=== PATIENT | male | born 1970 | race Caucasian/White ===

== ENCOUNTER 2020-08-05 07:45 | Observation (INO) | payer OTHER, SELFPAY ==
[2020-08-05] VITALS (16 sets, daily range): BP systolic 112–140; BP diastolic 72–84; PULSE 54–93; RESP 11–19; TEMP 36.4–36.6; O2SAT 97–100; BMI 25.8; BMI 25.1
--- NOTE | 2020-08-05 | DI.NM.S_ITS ---
PROCEDURE: NM MARYA PERF SPECT SINGLE STUDY Exercise myocardial perfusion SPECT with gated imaging and ejection fraction RADIOPHARMACEUTICAL: 25.6 mCi Tc-99m sestamibi IV at peak exercise. INDICATIONS: chest pain TECHNIQUE: Radiopharmaceutical was injected at peak stress test. SPECT images were obtained, with perfusion images in short axis, horizontal long axis, and vertical long axis views. Gated images were reviewed using [employer] software. COMPARISON: None. CARDIAC STRESS: A standard See treadmill exercise tolerance test was performed by the patient under the supervision of an attending staff. The patient exercised for 10 minutes and 1 seconds; functional aerobic impairment (ALDA) is +8%. Hemodynamic data: There is normal blood pressure and heart response to exercise. Patient achieved 91% of maximum predicted heart rate. Symptoms: Patient denied anginal chest pain during exercise. EKG: No diagnostic changes of ischemia; no ectopy. FINDINGS: Raw data: There is good labeling of myocardium by radiotracer. No significant motion artifacts. Gyhm-bg-ymykp ratio is 0.38 (normal is less than 0.38 for sestamibi tracer, and less than 0.50 for thallium tracer). Left ventricular function: Gated images demonstrate normal left ventricle wall thickening. No segmental wall motion abnormalities. Left ventricle end diastolic volume is 63 mL. Left ventricle stress ejection fraction is 75%; normal values are above 45%. Myocardial perfusion: There is normal distribution of activity in the left and right ventricular myocardium, without focal perfusion defects. IMPRESSION: Low risk, normal treadmill stress only nuclear study. 1) No perfusion evidence of ischemia or infarction. 2) Normal left ventricular size, wall motion, and systolic function (EF post stress 75%). 3) No ECG evidence of ischemia. 4) No angina during the study. 5) Slightly reduced exercise tolerance (12.8 METS, ALDA +8%). Target heart rate achieved. Appropriate BP response to exercise. 6) No prior nuclear stress test available for comparison. Dictated by: Kali Laguerre MD on 08/05/2020 at 17:11 Approved by: Kali Laguerre MD on 08/05/2020 at 17:13
--- NOTE | 2020-08-05 07:49 | DI.RAD.S_ITS ---
PROCEDURE: XR CHEST 1V INDICATIONS: chest pain TECHNIQUE: One view of the chest was acquired. COMPARISON: None. FINDINGS: Surgical changes and devices: None. Lungs and pleura: Lungs are clear. No pleural effusions or pneumothorax. Mediastinum: Mediastinal contours appear normal. Heart size is normal. Bones and chest wall: No suspicious bony lesions. Overlying soft tissues appear unremarkable. IMPRESSION: No acute disease. Dictated by: Shelton Birmingham M.D. on 08/05/2020 at 9:05 Approved by: Shelton Birmingham M.D. on 08/05/2020 at 9:17
--- NOTE | 2020-08-05 07:49 | ED.CHESTPAIN ---
HPI - Chest Pain General Chief Complaint: Chest Pain Stated Complaint: Chest pain Time Seen by Provider: 08/05/20 07:48 Source: patient and EMS Limitations: no limitations History of Present Illness HPI narrative: Patient is a 50-year-old male with history of hypertension hyperlipidemia presenting with chest pain. He states he was driving to work when he felt palpitations and pressure in the center of his chest. He said it was off and on until EMS arrived and then it was relieved by nitro. He said is nonradiating. He denies any provocation or palliation. He is currently chest pain-free after aspirin and 2 nitroglycerins. He has never experienced anything like this in the past. MD complaint: chest pain Onset (ago): hour(s) Duration: intermittent Onset: during rest Pain location: substernal Severity: moderate Quality: heaviness Relieving factors: nitroglycerin Treatments prior to arrival chest pain: aspirin and nitroglycerin Related Data Allergies Allergy/AdvReac Type Severity Reaction Status Date / Time No Known Drug Allergies Allergy Verified 08/05/20 08:42 Review of Systems Review of Systems Narrative: GENERAL: Denies chills, fatigue, malaise, fever, sweats, travel HEENT: Denies sinus pain, ear pain, sore throat, difficulty swallowing, neck pain RESPIRATORY: Denies dyspnea, cough, wheezing, hemoptysis, sputum. CARDIOVASCULAR: See HPI GASTROINTESTINAL: Denies nausea, vomiting, abdominal pain, diarrhea, constipation, melena. : Denies dysuria, frequency, incontinence, hematuria, urinary retention, flank pain. MUSCULOSKELETAL: Denies weakness, joint pain, or bony pain SKIN: No rash, no erythema, no pruritus NEUROLOGIC: Denies weakness, dizziness, headache, numbness, change in speech, confusion PSYCHIATRIC: No concerning psychosocial issues. 12 point review of systems is negative except for those stated above and HPI Patient History Medical History Hyperlipidemia Hypertension Social History Smoking Status: Former smoker alcohol intake frequency: 0-2 drinks per day Exam Initial Vital Signs Initial Vital Signs: Vital Signs Temperature 97.6 F 08/05/20 07:35 Pulse Rate 63 08/05/20 07:35 Respiratory Rate 16 08/05/20 07:35 Blood Pressure 131/80 08/05/20 07:35 Pulse Oximetry 99 08/05/20 07:35 GENERAL: Well-appearing, well-nourished and in no acute distress. HEENT: Head atraumatic,EOMI, pupils reactive, face symmetric, moist mucous membranes CARDIOVASCULAR: Regular rate and rhythm without murmurs, rubs or gallops. RESPIRATORY: Breath sounds equal bilaterally, no wheezes rales or rhonchi. ABDOMEN: Soft, nontender. Normoactive bowel sounds all 4 quadrants. No guarding or rebound. : No CVA tenderness EXTREMITIES: Normal range of motion, no clubbing or edema. Neurovascularly intact NEUROLOGICAL: Alert and oriented x4.Normal gait and speech. SKIN: Warm, dry, no laceration, no petechiae, no rashes or lesions. Scores HEART Score Heart Score history: Moderately Suspicious Heart Score EKG: Non-Specific repolarization disturbance Heart Score Age: 45-64 years old Heart Score risk factors: 1-2 risk factors Heart Score troponin: < or = to normal limit Heart Score Total: 4 Course Orders Ordered: ED Orders 08/05/20 07:45 Complete Blood Count AUTO DIFF Stat Comprehensive Metabolic Panel Stat Lipase Stat NT-proBNP (BNP-Adult 18+) Stat Partial Thromboplastin Time Stat Prothrombin Time INR Stat Troponin & CK Cardiac Panel Stat 08/05/20 07:49 XR chest 1V Stat 08/05/20 07:50 EKG-12 Lead Stat 08/05/20 08:28 EKG-12 Lead Routine 08/05/20 09:34 Troponin I Stat 08/05/20 10:19 COVID19 Stat Vital Signs Vital signs: Vital Signs - 8 hr 08/05/20 07:35 08/05/20 07:57 08/05/20 08:00 Temperature 97.6 F Pulse Rate 63 65 64 Respiratory Rate 16 14 15 Blood Pressure 131/80 Pulse Oximetry 99 99 99 08/05/20 08:30 08/05/20 08:46 08/05/20 09:00 Temperature Pulse Rate 62 60 54 L Respiratory Rate 17 14 13 Blood Pressure 112/77 119/72 Pulse Oximetry 98 98 97 08/05/20 09:30 08/05/20 10:00 08/05/20 10:08 Temperature Pulse Rate 59 L 60 63 Respiratory Rate 19 13 16 Blood Pressure 123/78 Pulse Oximetry 100 100 100 08/05/20 10:30 08/05/20 11:00 08/05/20 11:30 Temperature Pulse Rate 64 69 71 Respiratory Rate 11 L 17 14 Blood Pressure 124/74 132/84 125/81 Pulse Oximetry 100 100 97 MDM - Chest Pain Lab Data Attestation: I reviewed the patient's lab results. Result diagrams: 08/05/20 07:45 08/05/20 07:45 Labs: Lab Results 08/05/20 08/05/20 08/05/20 Range/Units 07:45 07:45 07:45 WBC 9.4 (4.5-11.0) X10^3/uL RBC 5.25 (4.5-5.9) X10^6/uL Hgb 16.2 (13.5-17.5) g/dL Hct 48.2 (41-53) % MCV 91.9 (80-100) fL MCH 30.9 (26-34) PG MCHC 33.7 (30-36) % RDW 12.4 (11.6-14.8) % Plt Count 240 (150-400) X10^3/uL Neut % (Auto) 72.7 (50-75) % Lymph % (Auto) 19.7 L (25-40) % [place] % (Auto) 6.4 (3-14) % Eos % (Auto) 0.9 L (2-4) % Baso % (Auto) 0.3 (0-2) % Neut # (Auto) 6800 (0696-9744) /uL Lymph # (Auto) 1800 (3492-1245) /uL [place] # (Auto) 600 (0-900) /uL Eos # (Auto) 100 (0-450) /uL Baso # (Auto) 0 (0-100) /uL PT 11.3 (10.1-12.7) SECONDS INR 1.0 (0.9-1.3) APTT 31 (26.4-36.2) SECONDS Sodium 138 (137-145) mmol/L Potassium 4.2 (3.4-5.1) mmol/L Chloride 102 (98-107) mmol/L Carbon Dioxide 26 (22-32) mmol/L BUN 22 H (9-20) mg/dL Creatinine 0.81 (0.66-1.25) mg/dL Estimated GFR > 60.0 (>60) mL/min BUN/Creatinine Ratio 27.2 H (6-22) Glucose 128 H (70-100) mg/dL Calcium 9.8 (8.4-10.2) mg/dL Total Bilirubin 0.9 (0.2-1.3) mg/dL AST 40 (17-59) IU/L ALT 47 (<50) IU/L Alkaline Phosphatase 83 (38-126) U/L Total Creatine Kinase 78 (55-170) U/L CK-MB (CK-2) TNP CK-MB (CK-2) Rel Index TNP Troponin I < 0.012 (0.01-0.034) ng/mL NT-Pro-B Natriuret Pep 45 (<125) pg/mL Total Protein 8.6 H (6.3-8.2) g/dL Albumin 4.9 (3.5-5.0) g/dL Globulin 3.7 (1.7-4.1) g/dL Albumin/Globulin Ratio 1.3 (1.0-2.8) Lipase 106 (23-300) U/L SARS-CoV-2 (PCR) (Negative) 08/05/20 08/05/20 Range/Units 09:34 10:19 WBC (4.5-11.0) X10^3/uL RBC (4.5-5.9) X10^6/uL Hgb (13.5-17.5) g/dL Hct (41-53) % MCV (80-100) fL MCH (26-34) PG MCHC (30-36) % RDW (11.6-14.8) % Plt Count (150-400) X10^3/uL Neut % (Auto) (50-75) % Lymph % (Auto) (25-40) % [place] % (Auto) (3-14) % Eos % (Auto) (2-4) % Baso % (Auto) (0-2) % Neut # (Auto) (0473-0327) /uL Lymph # (Auto) (8459-7239) /uL [place] # (Auto) (0-900) /uL Eos # (Auto) (0-450) /uL Baso # (Auto) (0-100) /uL PT (10.1-12.7) SECONDS INR (0.9-1.3) APTT (26.4-36.2) SECONDS Sodium (137-145) mmol/L Potassium (3.4-5.1) mmol/L Chloride (98-107) mmol/L Carbon Dioxide (22-32) mmol/L BUN (9-20) mg/dL Creatinine (0.66-1.25) mg/dL Estimated GFR (>60) mL/min BUN/Creatinine Ratio (6-22) Glucose (70-100) mg/dL Calcium (8.4-10.2) mg/dL Total Bilirubin (0.2-1.3) mg/dL AST (17-59) IU/L ALT (<50) IU/L Alkaline Phosphatase (38-126) U/L Total Creatine Kinase (55-170) U/L CK-MB (CK-2) CK-MB (CK-2) Rel Index Troponin I < 0.012 (0.01-0.034) ng/mL NT-Pro-B Natriuret Pep (<125) pg/mL Total Protein (6.3-8.2) g/dL Albumin (3.5-5.0) g/dL Globulin (1.7-4.1) g/dL Albumin/Globulin Ratio (1.0-2.8) Lipase (23-300) U/L SARS-CoV-2 (PCR) Negative (Negative) ECG Data Attestation: I personally reviewed and interpreted this ECG as follows: Prior ECG tracings: not available for review Interpretation: EKG 1. Normal sinus rhythm rate 68 p.r. interval 99 QRS 93 QTC 383 T-wave inversions noted in lead 3, AVF, V2 V3 and V4 no ST elevations EKG 2. Sinus rhythm rate 62 persistent T-wave inversions seem to be about the same previous MDM Narrative Medical decision making narrative: Patient remains chest pain-free while in the ED. he has 2-troponins however he does have some concerning T-wave inversions on EKGs which remain unchanged. I discussed case with Dr. Goldman who agrees for observation Discharge Plan Departure Patient Disposition: Admitted as Observation Clinical Impression: Chest pain Admit Date/Time: 08/05/20 11:43 Admit Provider: Carson Goldman
[2020-08-05 07:57] LABS: Add Manual Diff / Slide Review NO; Basophils Absolute Auto 0 /uL (0-100); Basophils Percent Auto 0.3 % (0-2); Eosinophils Absolute Auto 100 /uL (0-450); Eosinophils Percent Auto 0.9 % (2-4); Hematocrit 48.2 % (41-53); Hemoglobin 16.2 g/dL (13.5-17.5); Lymphocytes Absolute Auto 1800 /uL (1100-4500); Lymphocytes Percent Auto 19.7 % (25-40); Mean Corpuscular HGB Conc 33.7 % (30-36); Mean Corpuscular Hemoglobin 30.9 PG (26-34); Mean Corpuscular Volume 91.9 fL (80-100); Monocytes Absolute Auto 600 /uL (0-900); Monocytes Percent Auto 6.4 % (3-14); Neutrophils Absolute Auto 6800 /uL (1500-7000); Neutrophils Percent Auto 72.7 % (50-75); Platelet Count 240 X10^3/uL (150-400); Red Blood Cell Count 5.25 X10^6/uL (4.5-5.9); Red Cell Distribution Width 12.4 % (11.6-14.8); White Blood Cell Count 9.4 X10^3/uL (4.5-11.0)
[2020-08-05 08:00] LABS: Prothrombin Time 11.3 SECONDS (10.1-12.7)
[2020-08-05 08:03] LABS: PTT Partial Thromboplastin Tim 31 SECONDS (26.4-36.2)
[2020-08-05 08:05] LABS: Alanine Aminotransferase 47 IU/L (<50); Albumin 4.9 g/dL (3.5-5.0); Albumin Globulin Ratio 1.3 (1.0-2.8); Alkaline Phosphatase 83 U/L (38-126); Aspartate Aminotransferase 40 IU/L (17-59); BUN Creatinine Ratio 27.2 (6-22); Bilirubin Total 0.9 mg/dL (0.2-1.3); Blood Urea Nitrogen 22 mg/dL (9-20); Calcium 9.8 mg/dL (8.4-10.2); Carbon Dioxide 26 mmol/L (22-32); Chloride 102 mmol/L (98-107); Creatine Kinase 78 U/L (55-170); Estimated Glomerular Filt Rate > 60.0 mL/min (>60); Globulin 3.7 g/dL (1.7-4.1); Glucose 128 mg/dL (70-100); HEMOLYSIS < 15 (0-50); Lipase 106 U/L (23-300); Potassium 4.2 mmol/L (3.4-5.1); Sodium 138 mmol/L (137-145); Total Protein 8.6 g/dL (6.3-8.2)
[2020-08-05 08:16] LABS: NT-proBNP (BNP-Adult 18+) 45 pg/mL (<125); Troponin I < 0.012 ng/mL (0.01-0.034)
[2020-08-05 10:36] LABS: Troponin I < 0.012 ng/mL (0.01-0.034)
[2020-08-05 11:09] LABS: COVID19 -Nasal RAPID Negative (Negative)
--- NOTE | 2020-08-05 14:09 | P.HP_ITS ---
History of Present Illness History of Present Illness Date Patient Seen: 08/05/20 Time Patient Seen: 14:09 Chief complaint: Chest pain Narrative: Ron Keating is a 50-year-old male with a past medical history of hypertension and hyperlipidemia who presented via EMS after he complained chest pain while driving to work this morning. Patient describes the pain as a pressure-like sensation in the center of his chest, it was nonradiating and he did feel palpitations as well as nausea and dizziness but he did not feel diaphoretic and there was no radiation into his left arm, neck, or jaw. The pain was intermittent, with no obvious provoking or palliative factors, other than it was relieved by 2 nitroglycerin tabs and aspirin given to him. He denies previous symptoms and has never had any chest pain in the past. He denies a family history of heart disease. He has had no recent fevers, chills, shortness of breath, abdominal pain, lower extremity swelling, dyspnea on exertion. In the emergency room, his vital signs were unremarkable. Initial laboratory evaluation showed an unremarkable CBC, unremarkable chemistries, a negative troponin, negative proBNP, and negative COVID-19 testing. Chest x-ray was unremarkable. EKG did not show any ST elevations or depressions but did show T- wave inversions in inferior leads 3 and AVF as well as precordial leads V2 through V4. Prior EKG was not available for comparison. HEART score was 4. Patient was admitted under observation status for further evaluation of chest pain and stress testing, planned for later this afternoon. Patient History Medical History Hyperlipidemia Hypertension Surgical History (Updated 08/05/20 @ 14:25 by Carson Goldman DO) History of hernia surgery Status post excision of lipoma Family & Social History Family History (Updated 08/05/20 @ 14:26 by Carson Goldman DO) Father CVA (cerebral vascular accident) Social History: household members spouse Prior Living Arrangements House Safety & Behavioral: Feels Safe in Current Yes Environment Been Physically Hurt or No Threatened By a Person Suicidal Ideation Description None Tobacco & Substance use: Smoking Status Former smoker alcohol intake current alcohol intake frequency 0-2 drinks per day Substance Use Type does not use Meds Home Medications and Allergies Home Medications Medication Instructions Recorded Confirmed Type atenolol 50 mg PO BEDTIME 08/05/20 08/05/20 History atorvastatin 80 mg PO BEDTIME 08/05/20 08/05/20 History Allergies Allergy/AdvReac Type Severity Reaction Status Date / Time No Known Drug Allergies Allergy Verified 08/05/20 08:42 Review of Systems Review of Systems Narrative: All other systems reviewed with the patient and are negative unless otherwise stated. Exam Vital Signs (past 8 hours): - 08/05/20 07:35 08/05/20 07:57 08/05/20 08:00 Temperature 97.6 F Pulse Rate 63 65 64 Respiratory Rate 16 14 15 Blood Pressure 131/80 Pulse Oximetry 99 99 99 08/05/20 08:30 08/05/20 08:46 08/05/20 09:00 Temperature Pulse Rate 62 60 54 L Respiratory Rate 17 14 13 Blood Pressure 112/77 119/72 Pulse Oximetry 98 98 97 08/05/20 09:30 08/05/20 10:00 08/05/20 10:08 Temperature Pulse Rate 59 L 60 63 Respiratory Rate 19 13 16 Blood Pressure 123/78 Pulse Oximetry 100 100 100 08/05/20 10:30 08/05/20 11:00 08/05/20 11:30 Temperature Pulse Rate 64 69 71 Respiratory Rate 11 L 17 14 Blood Pressure 124/74 132/84 125/81 Pulse Oximetry 100 100 97 08/05/20 12:00 08/05/20 12:51 Temperature 97.8 F Pulse Rate 78 78 Respiratory Rate 14 18 Blood Pressure 115/79 130/79 Pulse Oximetry 97 99 Oxygen Delivery Method Room Air Oxygen Flow Rate 0 Narrative Exam Narrative: GENERAL APPEARANCE: Well developed, well nourished, in no acute distress. SKIN: Inspection of the skin reveals no rashes, ulcerations or petechiae. HEENT: Normocephalic atraumatic, extraocular muscles are intact, oropharynx is clear and mucous membranes are moist, neck is supple without adenopathy NECK: Supple and symmetric. There was no thyroid enlargement, and no tenderness, or masses were felt. CHEST: Normal AP diameter and normal contour without any kyphoscoliosis. LUNGS: Auscultation of the lungs revealed no wheezes, rhonchi, or rales. CARDIOVASCULAR: There was a regular rate and rhythm without any murmurs, gallops, rubs. Peripheral pulses were 2+ and symmetric. ABDOMEN: Soft and nontender with normal bowel sounds. No ascites was noted. MUSCULOSKELETAL: There was no tenderness or effusions noted. Muscle strength and tone were normal. EXTREMITIES: No cyanosis, clubbing or edema. NEUROLOGIC: Alert and oriented x 3. Normal affect. Gait was normal. Strength is +5/5 in the Upper Extremities and Lower Extremities Bilaterally. Objective Labs Result Diagrams: 08/05/20 07:45 08/05/20 07:45 Labs: Laboratory Results - last 24 hr 08/05/20 08/05/20 08/05/20 07:45 07:45 07:45 WBC 9.4 RBC 5.25 Hgb 16.2 Hct 48.2 MCV 91.9 MCH 30.9 MCHC 33.7 RDW 12.4 Plt Count 240 Neut % (Auto) 72.7 Lymph % (Auto) 19.7 L [place] % (Auto) 6.4 Eos % (Auto) 0.9 L Baso % (Auto) 0.3 Neut # (Auto) 6800 Lymph # (Auto) 1800 [place] # (Auto) 600 Eos # (Auto) 100 Baso # (Auto) 0 PT 11.3 INR 1.0 APTT 31 Sodium 138 Potassium 4.2 Chloride 102 Carbon Dioxide 26 BUN 22 H Creatinine 0.81 Estimated GFR > 60.0 BUN/Creatinine Ratio 27.2 H Glucose 128 H Calcium 9.8 Total Bilirubin 0.9 AST 40 ALT 47 Alkaline Phosphatase 83 Total Creatine Kinase 78 CK-MB (CK-2) TNP CK-MB (CK-2) Rel Index TNP Troponin I < 0.012 NT-Pro-B Natriuret Pep 45 Total Protein 8.6 H Albumin 4.9 Globulin 3.7 Albumin/Globulin Ratio 1.3 Lipase 106 SARS-CoV-2 (PCR) 08/05/20 08/05/20 09:34 10:19 WBC RBC Hgb Hct MCV MCH MCHC RDW Plt Count Neut % (Auto) Lymph % (Auto) [place] % (Auto) Eos % (Auto) Baso % (Auto) Neut # (Auto) Lymph # (Auto) [place] # (Auto) Eos # (Auto) Baso # (Auto) PT INR APTT Sodium Potassium Chloride Carbon Dioxide BUN Creatinine Estimated GFR BUN/Creatinine Ratio Glucose Calcium Total Bilirubin AST ALT Alkaline Phosphatase Total Creatine Kinase CK-MB (CK-2) CK-MB (CK-2) Rel Index Troponin I < 0.012 NT-Pro-B Natriuret Pep Total Protein Albumin Globulin Albumin/Globulin Ratio Lipase SARS-CoV-2 (PCR) Negative Assessment & Plan Assessment & Plan narrative: Ron Keating is a 50-year-old male with a past medical history of hypertension and hyperlipidemia who presented via EMS after he complained chest pain while driving to work this morning, subsequently chest pain resolved after being given aspirin and nitroglycerin. He does have some T- wave inversions in inferior and precordial leads, heart score is 4. Will admit under observation for nuclear stress testing planned for later this afternoon. 1. Chest pain, acute, resolved on admission -story is fairly atypical for anginal equivalent, but given palpitations and relieved with nitroglycerin along with EKG changes noted above will perform nuclear stress testing. HEART score of 4 on admission (history, EKG, age, and risk factors). -troponin has been negative x2. Repeat later this evening. -will further risk stratify with A1c, TSH, and fasting lipid panel as the patient has not eaten this morning. -if stress testing is deemed low risk, he can likely be discharged home with PCP follow-up for TTE and possible holter monitor to evaluate for possibility of arrythmia. 2. HTN, chronic - BP controlled since arrival. Did take home atenolol yesterday evening, 50 mg. 3. HLD, chronic - has been some time since his last lipid panel, will try and add on to ER labs. - continue home lipitor 80 mg. Code: Full as discussed with the patient Dispo: Admitted under observation status, possible discharge home later today DVT: Patient is ambulatory, will order SCDs COVID-19 COVID-19 status: Negative Quality VTE Deep Vein Thrombosis/Pulmonary Embolism Present on Admission: No
--- NOTE | 2020-08-05 14:45 | PC.NURSE ---
Admit Note Pt to room 223 from ER at 1230. Ambulated from wheelchair to chair in room, steady on feet, independent. Denies any chest pain or pressure since arrival to ER. SpO2 99% RA. NPO for cardiac stress test which was scheduled for 1430 - pt taken down for stress test at that time. Oriented to room on arrival and to call light/bed/tv controls. Declines need to lock up any valuables in safe. Glasses in place, cell phone at bedside, and clothing in room closet. Call light within reach.
[2020-08-05 14:54] LABS: Hemoglobin A1C% w Est Avg Glu 5.6 % (4.0-6.0)
[2020-08-05 15:56] LABS: Cholesterol 208 mg/dL (140-199); HDL Cholesterol 57 mg/dL (40-60); LDL Cholesterol Calculated 111 mg/dL (<100); Triglycerides 200 mg/dL (35-150)
[2020-08-05 17:01] LABS: Troponin I < 0.012 ng/mL (0.01-0.034)
--- NOTE | 2020-08-05 17:25 | PM.DS.1 ---
History of Present Illness History of Present Illness Date Patient Seen: 08/05/20 Time Patient Seen: 17:25 Chief complaint: Chest pain Narrative: Ron Keating is a 50-year-old male with a past medical history of hypertension and hyperlipidemia who presented via EMS after he complained chest pain while driving to work this morning. Patient describes the pain as a pressure-like sensation in the center of his chest, it was nonradiating and he did feel palpitations as well as nausea and dizziness but he did not feel diaphoretic and there was no radiation into his left arm, neck, or jaw. The pain was intermittent, with no obvious provoking or palliative factors, other than it was relieved by 2 nitroglycerin tabs and aspirin given to him. He denies previous symptoms and has never had any chest pain in the past. He denies a family history of heart disease. He has had no recent fevers, chills, shortness of breath, abdominal pain, lower extremity swelling, dyspnea on exertion. In the emergency room, his vital signs were unremarkable. Initial laboratory evaluation showed an unremarkable CBC, unremarkable chemistries, a negative troponin, negative proBNP, and negative COVID-19 testing. Chest x-ray was unremarkable. EKG did not show any ST elevations or depressions but did show T-wave inversions in inferior leads 3 and AVF as well as precordial leads V2 through V4. Prior EKG was not available for comparison. HEART score was 4. Patient was admitted under observation status for further evaluation of chest pain and stress testing, planned for later this afternoon. Discharge Providers Provider Date of admission: 08/05/20 11:43 Discharge Date: 08/05/20 Primary care physician: Cale Reno MD Discharge provider: Carson Goldman DO Summary Hospital Course Discharge Diagnosis: Fredy Keating is a 50-year-old male with a past medical history of hypertension and hyperlipidemia who presented via EMS after he complained chest pain while driving to work this morning, subsequently chest pain resolved after being given aspirin and nitroglycerin. He did have some T-wave inversions in inferior and precordial leads, heart score was 4. Admitted under observation for nuclear stress testing which was deemed low risk. 1. Chest pain, acute, resolved on admission -story is fairly atypical for anginal equivalent, but given palpitations and relieved with nitroglycerin along with EKG changes noted above performed nuclear stress testing which was deemed low risk. HEART score of 4 on admission (history, EKG, age, and risk factors). -troponin was negative x3. -A1c 5.6%, TSH unremarkable, LDL 111 on statin therapy. -recommend outpatient evaluation with PMD for holter, no other indication for TTE at this time unless symptoms continue. 2. HTN, chronic - BP controlled since arrival. Did take home atenolol yesterday evening, 50 mg. Okay to continue on discharge. 3. HLD, chronic - continue home lipitor 80 mg. LDL as noted above. Exam Vital Signs (past 8 hours): - 08/05/20 09:30 08/05/20 10:00 08/05/20 10:08 Temperature Pulse Rate 59 L 60 63 Respiratory Rate 19 13 16 Blood Pressure 123/78 Pulse Oximetry 100 100 100 08/05/20 10:30 08/05/20 11:00 08/05/20 11:30 Temperature Pulse Rate 64 69 71 Respiratory Rate 11 L 17 14 Blood Pressure 124/74 132/84 125/81 Pulse Oximetry 100 100 97 08/05/20 12:00 08/05/20 12:51 08/05/20 14:22 Temperature 97.8 F Pulse Rate 78 78 Respiratory Rate 14 18 Blood Pressure 115/79 130/79 Pulse Oximetry 97 99 99 08/05/20 15:50 Temperature 98 F Pulse Rate 93 H Respiratory Rate 17 Blood Pressure 140/81 Pulse Oximetry 98 Oxygen Delivery Method Room Air Oxygen Flow Rate 0 Narrative Exam Narrative: GENERAL APPEARANCE: Well developed, well nourished, in no acute distress. SKIN: Inspection of the skin reveals no rashes, ulcerations or petechiae. HEENT: Normocephalic atraumatic, extraocular muscles are intact, oropharynx is clear and mucous membranes are moist, neck is supple without adenopathy NECK: Supple and symmetric. There was no thyroid enlargement, and no tenderness, or masses were felt. CHEST: Normal AP diameter and normal contour without any kyphoscoliosis. LUNGS: Auscultation of the lungs revealed no wheezes, rhonchi, or rales. CARDIOVASCULAR: There was a regular rate and rhythm without any murmurs, gallops, rubs. Peripheral pulses were 2+ and symmetric. ABDOMEN: Soft and nontender with normal bowel sounds. No ascites was noted. MUSCULOSKELETAL: There was no tenderness or effusions noted. Muscle strength and tone were normal. EXTREMITIES: No cyanosis, clubbing or edema. NEUROLOGIC: Alert and oriented x 3. Normal affect. Gait was normal. Strength is +5/5 in the Upper Extremities and Lower Extremities Bilaterally. Objective Labs Result Diagrams: 08/05/20 07:45 08/05/20 07:45 Labs: Laboratory Results - last 24 hr 08/05/20 08/05/20 08/05/20 07:45 07:45 07:45 WBC 9.4 RBC 5.25 Hgb 16.2 Hct 48.2 MCV 91.9 MCH 30.9 MCHC 33.7 RDW 12.4 Plt Count 240 Neut % (Auto) 72.7 Lymph % (Auto) 19.7 L [place] % (Auto) 6.4 Eos % (Auto) 0.9 L Baso % (Auto) 0.3 Neut # (Auto) 6800 Lymph # (Auto) 1800 [place] # (Auto) 600 Eos # (Auto) 100 Baso # (Auto) 0 PT 11.3 INR 1.0 APTT 31 Sodium 138 Potassium 4.2 Chloride 102 Carbon Dioxide 26 BUN 22 H Creatinine 0.81 Estimated GFR > 60.0 BUN/Creatinine Ratio 27.2 H Glucose 128 H Hemoglobin A1c Calcium 9.8 Total Bilirubin 0.9 AST 40 ALT 47 Alkaline Phosphatase 83 Total Creatine Kinase 78 CK-MB (CK-2) TNP CK-MB (CK-2) Rel Index TNP Troponin I < 0.012 NT-Pro-B Natriuret Pep 45 Total Protein 8.6 H Albumin 4.9 Globulin 3.7 Albumin/Globulin Ratio 1.3 Triglycerides Cholesterol LDL Cholesterol, Calc HDL Cholesterol Lipase 106 SARS-CoV-2 (PCR) 08/05/20 08/05/20 08/05/20 07:45 07:45 09:34 WBC RBC Hgb Hct MCV MCH MCHC RDW Plt Count Neut % (Auto) Lymph % (Auto) [place] % (Auto) Eos % (Auto) Baso % (Auto) Neut # (Auto) Lymph # (Auto) [place] # (Auto) Eos # (Auto) Baso # (Auto) PT INR APTT Sodium Potassium Chloride Carbon Dioxide BUN Creatinine Estimated GFR BUN/Creatinine Ratio Glucose Hemoglobin A1c 5.6 Calcium Total Bilirubin AST ALT Alkaline Phosphatase Total Creatine Kinase CK-MB (CK-2) CK-MB (CK-2) Rel Index Troponin I < 0.012 NT-Pro-B Natriuret Pep Total Protein Albumin Globulin Albumin/Globulin Ratio Triglycerides 200 H Cholesterol 208 H LDL Cholesterol, Calc 111 H HDL Cholesterol 57 Lipase SARS-CoV-2 (PCR) 08/05/20 08/05/20 10:19 16:31 WBC RBC Hgb Hct MCV MCH MCHC RDW Plt Count Neut % (Auto) Lymph % (Auto) [place] % (Auto) Eos % (Auto) Baso % (Auto) Neut # (Auto) Lymph # (Auto) [place] # (Auto) Eos # (Auto) Baso # (Auto) PT INR APTT Sodium Potassium Chloride Carbon Dioxide BUN Creatinine Estimated GFR BUN/Creatinine Ratio Glucose Hemoglobin A1c Calcium Total Bilirubin AST ALT Alkaline Phosphatase Total Creatine Kinase CK-MB (CK-2) CK-MB (CK-2) Rel Index Troponin I < 0.012 NT-Pro-B Natriuret Pep Total Protein Albumin Globulin Albumin/Globulin Ratio Triglycerides Cholesterol LDL Cholesterol, Calc HDL Cholesterol Lipase SARS-CoV-2 (PCR) Negative [facility] Medical History Hyperlipidemia Hypertension Surgical History (Updated 08/05/20 @ 14:25 by Carson Goldman DO) History of hernia surgery Status post excision of lipoma Family History (Updated 08/05/20 @ 14:26 by Carson Goldman DO) Father CVA (cerebral vascular accident) Social History household members: spouse Smoking Status: Former smoker alcohol intake: current Discharge Plan Discharge Plan Patient Disposition: Home Provider Discharge Comment: You were admitted to the hospital with chest pain and had some abnormal findings on your electrocardiogram. This was further evaluated with a nuclear stress test which was deemed low risk for evidence of a blockage in your heart. Please follow-up with her primary care provider in the next week or 2, I do not have any medication recommendations for you at this time. Your blood pressure seems controlled, and although your cholesterol is slightly high it is not severely so and you should continue taking your home atorvastatin. Further evaluation to be considered would be possibly getting you set up for a Holter monitor to assess for a possible arrhythmia if your symptoms recur. Discharge orders & Medications Prescriptions: Continued atorvastatin 80 mg Tablet 80 mg PO BEDTIME RF: 0 atenolol 50 mg Tablet 50 mg PO BEDTIME RF: 0 Follow up/Referrals: Cale Reno MD [Primary Care Provider] - Diet/Activity/Treatments Diet: Diet as Tolerated and Low-cholesterol Activity: As tolerated Discharge Data Primary Care Provider: Cale Reno Attending Provider: Carson Goldman VTE Deep Vein Thrombosis/Pulmonary Embolism Present on Admission: No
--- NOTE | 2020-08-05 17:45 | PC.NURSE ---
Patient discharged home. Discharge instructions given- no new meds, directed to follow up with pcp within 2 weeks. Patient gathered own belongings. IV removed, tele removed. Patient had no concerns or questions about discharge.
[2020-08-05 20:03] LABS: TSH w/ Reflex to FT4 1.85 uIU/mL (0.47-4.68)
== END 2020-08-05 17:46 | disposition home or self-care (01) ==
LOC: ED 10:54 → AC 11:46
PROVIDERS: Admitting Provider Internal Medicine; Emergency Provider Emergency Medicine; PCP Specialist; Referring Provider Emergency Medicine; Visit Provider Internal Medicine
DX: R07.9 Chest pain, unspecified (principal); I10 Essential (primary) hypertension; E78.5 Hyperlipidemia, unspecified; Z20.822 Contact with and (suspected) exposure to COVID-19
CPT/HCPCS: 36415; 71045; 78451; 80053; 80061; 82550; 83036; 83690; 83880; 84443; 84484; 85025; 85610; 85730; 87635; 93005; 93017; 99283; 99284; C9803; G0378; A9502